=== PATIENT | female | born 1945 | race Caucasian/White ===

== ENCOUNTER 2022-03-28 07:56 | Outpatient (CLI) | payer MEDICARE, BC, SELFPAY ==
[2022-03-28 09:53] LABS: Chloride* 102 mmol/L (96-114)
[2022-03-28 09:54] LABS: Albumin* 4.4 g/dL (3.3-5.0); Sodium* 137 mmol/L (135-149)
[2022-03-28 09:55] LABS: Potassium* 4.6 mmol/L (3.6-5.1)
[2022-03-28 09:56] LABS: Bilirubin Total* 0.5 mg/dL (0.1-1.5); Carbon Dioxide* 27 mmol/L (20-32); Creatinine* 0.8 mg/dL (0.5-1.5); Estimated Glomerular Filt Rate 76 ml/min
[2022-03-28 09:57] LABS: Alanine Aminotransferase* 46 U/L (4-35); Alkaline Phosphatase* 96 U/L (40-150); Aspartate Amino Transferase* 42 U/L (12-35); Blood Urea Nitrogen* 23 mg/dL (7-30); Glucose* 106 mg/dL (60-115); Total Protein* 7.2 g/dL (6.0-8.3)
[2022-03-28 09:58] LABS: Calcium* 9.3 mg/dL (8.4-10.6)
== END 2022-03-28 07:57 | disposition home or self-care (01) ==
LOC: NFLDREF 07:58
PROVIDERS: PCP Family Medicine; Visit Provider Family Medicine
DX: E11.9 Type 2 diabetes mellitus without complications (principal); Z13.1 Encounter for screening for diabetes mellitus
CPT/HCPCS: 80053

== ENCOUNTER 2023-03-06 08:58 | Outpatient (CLI) | payer MEDICARE, BC, SELFPAY | END 2023-03-06 08:59 | disposition home or self-care (01) | PROVIDERS: PCP Family Medicine; Visit Provider Family Medicine | DX: I10 Essential (primary) hypertension (principal); E66.9 Obesity, unspecified; E78.5 Hyperlipidemia, unspecified; N18.30 Chronic kidney disease, stage 3 unspecified; M81.0 Age-related osteoporosis without current pathological fracture | CPT/HCPCS: 80053; 80061; 82306 ==

== ENCOUNTER 2023-04-04 12:43 | Outpatient (CLI) | payer MEDICARE, BC, SELFPAY ==
--- NOTE | 2023-04-04 13:00 | CRLHL7_ITS ---
For Patients: As a result of the Century Cures Act, medical imaging exams and procedure reports are released immediately into your electronic medical record. You may view this report before your referring provider. If you have questions, please contact your health care provider. DXA BONE MINERAL DENSITY STUDY Current height (in): 63.0. Weight (lb): 185.0. Menopause age: 44. Ethnicity: White. Reason for exam: Osteoporosis. 1. Have you had a previous hip or vertebral fracture? No. 2. Have you had any fractures during your adult life which did not result from significant trauma (e.g., auto accident)? Yes. 3. Did either of your parents have a hip fracture? No. 4. Do you smoke? No. 5. Have you ever taken Glucocorticoids? No. 6. Do you have rheumatoid arthritis? No. 7. Do you have secondary osteoporosis? No. 8. Do you drink 3 or more alcoholic drinks per day? No. 9. Are you being treated for osteoporosis? No. 10. Have you ever taken any of the following medications: Actonel, Evista, Fosamax, Miacalcin, Reclast, Boniva, Forteo, HRT (i.e. estrogen/hormone therapy), Protelos, Prolia, Vitamin D, Calcium, other ??? please specify. ANSWER: Yes, on osteoporosis medication. 11. Do you have any of the following medical conditions: Anorexia or bulimia, asthma or emphysema, end stage renal disease, hyperparathyroidism, any seizure disorders, cancer, inflammatory bowel diseases, hysterectomy, other ??? please specify. ANSWER: No. 12. What was your maximum height (inches)? 64. 13. Do you perform weight bearing exercise regularly? No. 14. Do you regularly consume dairy products? Yes. 15. Do you drink caffeinated beverages? Yes. 16. At what age did your period start? 11. 17. Are you premenopausal? No. 18. How many full-term pregnancies have you had? 3. 19. Have you ever missed your period for more than 6 months in a row (not including or menopause)? No. TECHNIQUE: Bone mineral density study was performed using the [employer]. FINDINGS: The results of the study expressed as bone mineral density (BMD) are as follows: Lumbar spine L1 to L3: BMD: 0.757 g/cm2. T-score: -2.4. Z-score: 0.1. Neck Left: BMD: 0.604 g/cm2. T-score: -2.2. Z-score: 0.0. Right: BMD: 0.683 g/cm2. T-score: -1.5. Z-score: 0.7. Total Left: BMD: 0.834 g/cm2. T-score: -0.9. Z-score: 1.1. Right: BMD: 0.840 g/cm2. T-score: -0.8. Z-score: 1.1. IMPRESSION: Osteopenia. *Comparison exams done prior to 10/2019 were performed on different unit, [facility]. COMPARISON: Compared with scan of 07/07/2020, the bone mineral density has decreased by 8.8 percent at the spine and increased by 3.7 percent at the hip. FRAX 10-year Fracture Risk Major Osteoporotic Fracture: 21 percent Hip Fracture: 5.7 percent Reported Risk Factors: [place] () Neck BMD = 0.604, BMI = 32.8 David Esparza M.D. Diagnostic Radiologist [email or web address] Transcribed: 9:13 am DW/Dictated by: David Esparza MD @ 04/05/2023 5:48:00 AM DW/Dictated by: David Esparza MD @ 04/05/2023 5:48:00 AM (Electronically Signed)
== END 2023-04-04 12:44 | disposition home or self-care (01) ==
LOC: RAD 12:44
PROVIDERS: PCP Family Medicine; Visit Provider Family Medicine
DX: M81.0 Age-related osteoporosis without current pathological fracture (principal); M85.89 Other specified disorders of bone density and structure, multiple sites
CPT/HCPCS: 77080

== ENCOUNTER 2024-03-04 07:25 | Outpatient (CLI) | payer MEDICARE, BC, SELFPAY | END 2024-03-04 07:26 | disposition home or self-care (01) | LOC: NFLDREF 19:25 | PROVIDERS: PCP Family Medicine; Referring Provider Family Medicine; Visit Provider Family Medicine | DX: I10 Essential (primary) hypertension (principal); E78.5 Hyperlipidemia, unspecified; R73.03 Prediabetes; M81.0 Age-related osteoporosis without current pathological fracture | CPT/HCPCS: 80053; 80061; 82306 ==

== ENCOUNTER 2025-03-19 07:23 | Outpatient (CLI) | payer MEDICARE, BC, SELFPAY | END 2025-03-19 07:24 | disposition home or self-care (01) | LOC: NFLDREF 03-21 17:22 | PROVIDERS: PCP Family Medicine; Referring Provider Family Medicine; Visit Provider Family Medicine | DX: I10 Essential (primary) hypertension (principal); E78.5 Hyperlipidemia, unspecified; Z79.1 Long term (current) use of non-steroidal anti-inflammatories (NSAID); M81.0 Age-related osteoporosis without current pathological fracture | CPT/HCPCS: 80053; 80061; 82306 ==

== ENCOUNTER 2025-04-29 14:12 | Outpatient (CLI) | payer MEDICARE, BC, SELFPAY ==
--- NOTE | 2025-04-29 14:30 | CRLHL7_ITS ---
For Patients: As a result of the Century Cures Act, medical imaging exams and procedure reports are released immediately into your electronic medical record. You may view this report before your referring provider. If you have questions, please contact your health care provider. DXA BONE MINERAL DENSITY STUDY Reason for exam: Follow-up osteoporosis. Current height (in): 61. Weight (lb): 185. Menopause age: 44. Ethnicity: White. 1. Have you had a previous hip or vertebral fracture? No. 2. Have you had any fractures during your adult life which did not result from significant trauma (e.g., auto accident)? Yes. 3. Did either of your parents have a hip fracture? No. 4. Do you smoke? No. 5. Have you ever taken Glucocorticoids? No. 6. Do you have rheumatoid arthritis? No. 7. Do you have secondary osteoporosis? No. 8. Do you drink 3 or more alcoholic drinks per day? No. 9. Are you being treated for osteoporosis? Yes. 10. Have you ever taken any of the following medications: Actonel, Evista, Fosamax, Miacalcin, Reclast, Boniva, Forteo, HRT (i.e. estrogen/hormone therapy), Protelos, Prolia, Vitamin D, Calcium, other ??? please specify. ANSWER: Yes, Vitamin D and on osteoporosis medication. 11. Do you have any of the following medical conditions: Anorexia or bulimia, asthma or emphysema, end stage renal disease, hyperparathyroidism, any seizure disorders, cancer, inflammatory bowel diseases, hysterectomy, other ??? please specify. ANSWER: No. 12. What was your maximum height (inches)? 64. 13. Do you perform weight bearing exercise regularly? No. 14. Do you regularly consume dairy products? Yes. 15. Do you drink caffeinated beverages? Yes. 16. At what age did your period start? 11. 17. Are you premenopausal? No. 18. How many full-term pregnancies have you had? 3. 19. Have you ever missed your period for more than 6 months in a row (not including or menopause)? No. TECHNIQUE: Bone mineral density study was performed using the [employer]. FINDINGS: The results of the study expressed as bone mineral density (BMD) are as follows: Lumbar spine L1 to L3: BMD: 0.695 g/cm2. T-score: -2.9. Z-score: -0.3. Neck Left: BMD: 0.595 g/cm2. T-score: -2.3. Z-score: 0.0. Right: BMD: 0.648 g/cm2. T-score: -1.8. Z-score: 0.5. Total Left: BMD: 0.803 g/cm2. T-score: -1.1. Z-score: 0.9. Right: BMD: 0.818 g/cm2. T-score: -1.0. Z-score: 1.1. IMPRESSION: Osteoporosis. *Comparison exams done prior to 10/2019 were performed on different unit, [employer]. COMPARISON: Compared with scan of 04/04/2023, the bone mineral density has decreased by 8.2 percent at the spine and decreased by 3.2 percent at the hip. Compared with scan of 07/07/2020, the bone mineral density has decreased by 8.8 percent at the spine and increased by 3.7 percent at the hip. David Esparza M.D. Diagnostic Radiologist [email or web address] jj/Dictated by: David Esparza MD @ 04/30/2025 8:44:00 AM (Electronically Signed)
== END 2025-04-29 14:13 | disposition home or self-care (01) ==
LOC: RAD 14:13
PROVIDERS: PCP Family Medicine; Visit Provider Family Medicine
DX: M81.0 Age-related osteoporosis without current pathological fracture (principal)
CPT/HCPCS: 77080